=== PATIENT | female | born 1985 | race Caucasian/White ===

== ENCOUNTER 2016-11-16 15:41 | Emergency (ER) | payer OTHER ==
[~2016-11-16] VITALS: Ht 167.6 cm; Wt 111.3 kg
[2016-11-16 16:42] LABS: BASOPHIL % 0.3 % (0-2); PLATELET COUNT 242 x10^3mcL (130-400); RED CELL DISTRIBUTION WIDTH 14.3 % (11.5-14.5)
[2016-11-16 16:49] LABS: CHLORIDE SERUM 97 mmol/L (98-107); CREATININE SERUM 0.8 mg/dL (0.6-1.0); GFR1 > 60 mL/min; GLUCOSE SERUM 389 mg/dL (74-106); POTASSIUM SERUM 3.7 mmol/L (3.5-5.1); SODIUM SERUM 134 mmol/L (136-145)
[2016-11-16 17:01] LABS: ALBUMIN 3.5 g/dL (3.4-5.0); ALKALINE PHOSPHATASE 78 U/L (46-116); ALT/SGPT 30 U/L (14-59); AST/SGOT 12 U/L (15-37); BILIRUBIN TOTAL 0.24 mg/dL (0.20-1.00); TOTAL PROTEIN, SERUM 7.8 g/dL (6.4-8.2)
[2016-11-16 20:06] VITALS: BP 136/79
== END 2016-11-16 20:06 | disposition home or self-care (01) ==
LOC: ED 15:41
PROVIDERS: Emergency Medicine
DX: R07.9 Chest pain, unspecified (principal); E11.9 Type 2 diabetes mellitus without complications; I10 Essential (primary) hypertension; F43.9 Reaction to severe stress, unspecified; Z98.51 Tubal ligation status
CPT/HCPCS: 36415; 82962; 83880; J1815; Q0092

== ENCOUNTER 2017-01-26 12:10 | Emergency (ER) | payer OTHER ==
[2017-01-26 13:01] LABS: CALCIUM 8.7 mg/dL (8.5-10.1); CARBON DIOXIDE 26.1 mmol/L (21-32); CHLORIDE SERUM 99 mmol/L (98-107); CREATININE SERUM 0.9 mg/dL (0.6-1.0); GFR1 > 60 mL/min; GLUCOSE SERUM 385 mg/dL (74-106); POTASSIUM SERUM 3.7 mmol/L (3.5-5.1); SODIUM SERUM 135 mmol/L (136-145)
[2017-01-26 13:07] LABS: BASOPHIL % 0.3 % (0-2); PLATELET COUNT 232 x10^3mcL (130-400); RED CELL DISTRIBUTION WIDTH 13.6 % (11.5-14.5)
[2017-01-26 13:09] LABS: ALBUMIN 3.4 g/dL (3.4-5.0); ALKALINE PHOSPHATASE 81 U/L (46-116); ALT/SGPT 31 U/L (14-59); AST/SGOT 16 U/L (15-37); BILIRUBIN TOTAL 0.3 mg/dL (0.20-1.00); TOTAL PROTEIN, SERUM 7.5 g/dL (6.4-8.2)
[2017-01-26 13:38] LABS: microscopic required? NO
[2017-01-26] MEDS ORDERED: LANTUS SOLOS100 U/M1 SQ (13:38)
[2017-01-26 14:35] LABS: AMYLASE 32 U/L (25-115); CHOLESTEROL 233 mg/dL (<200); CHOLESTEROL/HDL RATIO 6.7; HDL CHOLESTEROL 35 mg/dL (40-60); LIPASE 130 IU/L (73-393); MAGNESIUM 1.6 mg/dL (1.8-2.4); PHOSPHOROUS 3.5 mg/dL (2.5-4.9); TRIGLYCERIDES 431 mg/dL (<150)
[2017-01-26 14:42] LABS: T3 TOTAL 1.16 ng/mL
[2017-01-26 15:02] VITALS: BP 119/89
[2017-01-26 15:03] LABS: UA SPECIFIC GRAVITY 1.015 (1.005-1.035); urine erythrocyte NEGATIVE (NEGATIVE)
[2017-01-26 15:07] LABS: AMPHETAMINE QUAL UR NONE DETECTED (NEG <=1000)
[2017-01-26 15:23] LABS: FREE T4 0.97 ng/dL (0.76-1.46); FREE THYROXINE INDEX 2.7 ug/dL (1.4-4.5); T4(THYROXINE) 8.3 ug/dL (4.7-13.3)
== END 2017-01-26 15:02 | disposition left against medical advice (07) ==
LOC: ED 12:10 → DU 13:17 → ED 13:17
PROVIDERS: Emergency Medicine; Family Medicine Sports Medicine
DX: R07.89 Other chest pain (principal); E11.65 Type 2 diabetes mellitus with hyperglycemia; I10 Essential (primary) hypertension; E78.00 Pure hypercholesterolemia, unspecified
CPT/HCPCS: 82962; 83880; 84439; 85378; J1815; J1885; J7030; Q0092

== ENCOUNTER 2018-03-06 18:51 | Emergency (ER) | payer OTHER ==
[~2018-03-06] VITALS: Ht 175.3 cm; Wt 108.4 kg
[~2018-03-06 18:51] MED LIST: LANTUS SOLOS100 U/M1 SQ
[2018-03-06 19:08] VITALS: Ht 175.3 cm; Wt 108.4 kg
[2018-03-06 21:46] VITALS: BP 132/92
== END 2018-03-06 21:46 | disposition home or self-care (01) ==
LOC: ED 18:51
DX: B34.9 Viral infection, unspecified (principal); I10 Essential (primary) hypertension; E11.9 Type 2 diabetes mellitus without complications

== ENCOUNTER 2018-06-22 16:09 | Emergency (ER) | payer OTHER ==
[~2018-06-22] VITALS: Ht 170.2 cm; Wt 109.8 kg
[2018-06-22 16:12] VITALS: Ht 170.2 cm; Wt 109.8 kg
[2018-06-22 17:03] LABS: BASOPHIL % 0.3 % (0-2); PLATELET COUNT 258 x10^3mcL (130-400); RED CELL DISTRIBUTION WIDTH 14.4 % (11.5-14.5)
[2018-06-22 17:09] LABS: CALCIUM 8.6 mg/dL (8.5-10.1); CARBON DIOXIDE 27.6 mmol/L (21-32); CHLORIDE SERUM 99 mmol/L (98-107); CREATININE SERUM 0.7 mg/dL (0.6-1.0); GFR1 > 60 mL/min; GLUCOSE SERUM 329 mg/dL (74-106); POTASSIUM SERUM 3.8 mmol/L (3.5-5.1); SODIUM SERUM 136 mmol/L (136-145)
[2018-06-22 17:13] LABS: ALBUMIN 3.7 g/dL (3.4-5.0); ALKALINE PHOSPHATASE 83 U/L (46-116); ALT/SGPT 26 U/L (14-59); AST/SGOT 19 U/L (15-37); LIPASE 130 IU/L (73-393); TOTAL PROTEIN, SERUM 7.8 g/dL (6.4-8.2)
[2018-06-22 18:59] VITALS: BP 144/79
== END 2018-06-22 18:59 | disposition home or self-care (01) ==
LOC: ED 16:09
PROVIDERS: Emergency Medicine
DX: E11.65 Type 2 diabetes mellitus with hyperglycemia (principal); R53.1 Weakness; I10 Essential (primary) hypertension
CPT/HCPCS: 82962; J1885; J2405; J7030

== ENCOUNTER 2018-11-23 11:54 | Emergency (ER) | payer OTHER ==
[~2018-11-23] VITALS: Ht 170.2 cm; Wt 112.0 kg
[2018-11-23 12:28] VITALS: Ht 170.2 cm; Wt 112.0 kg
[2018-11-23 14:59] VITALS: BP 139/96
== END 2018-11-23 14:59 | disposition home or self-care (01) ==
LOC: ED 11:54
DX: M77.12 Lateral epicondylitis, left elbow (principal); I10 Essential (primary) hypertension; E11.9 Type 2 diabetes mellitus without complications; Z98.890 Other specified postprocedural states; Z90.49 Acquired absence of other specified parts of digestive tract

== ENCOUNTER 2019-04-02 10:06 | Emergency (ER) | payer OTHER ==
[~2019-04-02] VITALS: Ht 167.6 cm; Wt 110.7 kg
[2019-04-02 10:10] VITALS: Ht 167.6 cm; Wt 110.7 kg
[2019-04-02 12:01] VITALS: BP 114/76
== END 2019-04-02 12:01 | disposition home or self-care (01) ==
LOC: ED 10:06
DX: N64.4 Mastodynia (principal); I10 Essential (primary) hypertension; E11.9 Type 2 diabetes mellitus without complications; E78.5 Hyperlipidemia, unspecified; Z90.49 Acquired absence of other specified parts of digestive tract; Z98.890 Other specified postprocedural states
CPT/HCPCS: J1885

== ENCOUNTER 2019-05-22 14:59 | Emergency (ER) | payer OTHER ==
[~2019-05-22] VITALS: Ht 170.2 cm; Wt 112.9 kg
[2019-05-22 15:04] VITALS: Ht 170.2 cm; Wt 112.9 kg
[2019-05-22 17:11] LABS: CALCIUM 8.9 mg/dL (8.5-10.1); CARBON DIOXIDE 28.7 mmol/L (21-32); CHLORIDE SERUM 99 mmol/L (98-107); CREATININE SERUM 0.7 mg/dL (0.6-1.0); GFR1 > 60 mL/min; GLUCOSE SERUM 347 mg/dL (74-106); SODIUM SERUM 137 mmol/L (136-145)
[2019-05-22 17:12] LABS: POTASSIUM SERUM 4.1 mmol/L (3.5-5.1)
[2019-05-22 18:48] VITALS: BP 124/84
== END 2019-05-22 18:48 | disposition home or self-care (01) ==
LOC: ED 14:59
PROVIDERS: Emergency Medicine
DX: G51.0 Bell's palsy (principal); E11.65 Type 2 diabetes mellitus with hyperglycemia
CPT/HCPCS: 36415

== ENCOUNTER 2019-06-07 15:05 | Emergency (ER) | payer OTHER ==
[~2019-06-07] VITALS: Ht 167.6 cm; Wt 108.9 kg
[2019-06-07 15:17] VITALS: Ht 167.6 cm; Wt 108.9 kg
[2019-06-07 17:47] VITALS: BP 136/72
== END 2019-06-07 17:45 | disposition home or self-care (01) ==
LOC: ED 15:05
DX: R05 Cough (principal); R50.9 Fever, unspecified; E11.9 Type 2 diabetes mellitus without complications; E78.5 Hyperlipidemia, unspecified; E66.9 Obesity, unspecified; I10 Essential (primary) hypertension; Z68.38 Body mass index [BMI] 38.0-38.9, adult; Z98.890 Other specified postprocedural states; Z90.49 Acquired absence of other specified parts of digestive tract
CPT/HCPCS: 87804; Q0092; U0002

== ENCOUNTER 2019-08-30 10:17 | Emergency (ER) | payer OTHER ==
[~2019-08-30] VITALS: Ht 167.6 cm; Wt 110.7 kg
[2019-08-30 10:23] VITALS: Ht 167.6 cm; Wt 110.7 kg
[2019-08-30 11:35] VITALS: BP 145/89
== END 2019-08-30 11:13 | disposition home or self-care (01) ==
LOC: ED 10:17
DX: S43.402A Unspecified sprain of left shoulder joint, initial encounter (principal); L03.116 Cellulitis of left lower limb; I10 Essential (primary) hypertension; E11.9 Type 2 diabetes mellitus without complications; Z90.49 Acquired absence of other specified parts of digestive tract; X58.XXXA Exposure to other specified factors, initial encounter; Y93.89 Activity, other specified; Y92.89 Other specified places as the place of occurrence of the external cause; Y99.8 Other external cause status
CPT/HCPCS: J1885; Q0092

== ENCOUNTER 2019-09-11 12:11 | Emergency (ER) | payer OTHER, SELFPAY ==
[~2019-09-11] VITALS: Ht 170.2 cm; Wt 110.2 kg
[2019-09-11 12:33] VITALS: Ht 170.2 cm; Wt 110.2 kg
[2019-09-11 14:06] LABS: CALCIUM 8.6 mg/dL (8.5-10.1); CHLORIDE SERUM 98 mmol/L (98-107); CREATININE SERUM 0.5 mg/dL (0.6-1.0); GFR1 > 60 mL/min; GLUCOSE SERUM 284 mg/dL (74-106); POTASSIUM SERUM 3.9 mmol/L (3.5-5.1); SODIUM SERUM 134 mmol/L (136-145)
[2019-09-11 14:21] LABS: BASOPHIL % 0.4 % (0-2); PLATELET COUNT 176 x10^3mcL (130-400); RED CELL DISTRIBUTION WIDTH 13.9 % (11.5-14.5)
[2019-09-11 15:40] VITALS: BP 115/67
== END 2019-09-11 15:48 | disposition home or self-care (01) ==
LOC: ED 12:11
PROVIDERS: Emergency Medicine
DX: R00.0 Tachycardia, unspecified (principal); R50.9 Fever, unspecified; I10 Essential (primary) hypertension; E11.9 Type 2 diabetes mellitus without complications; R06.02 Shortness of breath; R07.89 Other chest pain; Z20.828 Contact with and (suspected) exposure to other viral communicable diseases
CPT/HCPCS: J0780; J1885; J7030; Q0092; U0003-CS

== ENCOUNTER 2019-09-14 22:41 | Emergency (ER) | payer OTHER ==
[~2019-09-14] VITALS: Ht 167.6 cm; Wt 104.8 kg
[2019-09-14 22:51] VITALS: Ht 167.6 cm; Wt 104.8 kg
[2019-09-15 00:53] VITALS: BP 131/95
== END 2019-09-15 00:53 | disposition home or self-care (01) ==
LOC: ED 22:41
DX: R04.0 Epistaxis (principal); I10 Essential (primary) hypertension; E11.9 Type 2 diabetes mellitus without complications; E78.5 Hyperlipidemia, unspecified; Z90.49 Acquired absence of other specified parts of digestive tract; Z98.890 Other specified postprocedural states

== ENCOUNTER 2019-10-15 09:11 | Emergency (ER) | payer OTHER, SELFPAY ==
[~2019-10-15] VITALS: Ht 167.6 cm; Wt 105.7 kg
[2019-10-15 09:13] VITALS: Ht 167.6 cm; Wt 105.7 kg
[2019-10-15 10:04] LABS: BASOPHIL % 0.3 % (0-2); PLATELET COUNT 238 x10^3mcL (130-400)
[2019-10-15 10:10] LABS: RED CELL DISTRIBUTION WIDTH 14.9 % (11.5-14.5)
[2019-10-15 10:19] LABS: CALCIUM 9.2 mg/dL (8.5-10.1); CARBON DIOXIDE 23.4 mmol/L (21-32); CHLORIDE SERUM 99 mmol/L (98-107); CREATININE SERUM 0.6 mg/dL (0.6-1.0); GFR1 > 60 mL/min; GLUCOSE SERUM 291 mg/dL (74-106); SODIUM SERUM 136 mmol/L (136-145)
[2019-10-15 10:23] LABS: ALBUMIN 3.6 g/dL (3.4-5.0); ALKALINE PHOSPHATASE 63 U/L (46-116); ALT/SGPT 19 U/L (14-59); AST/SGOT 12 U/L (15-37); BILIRUBIN TOTAL 0.3 mg/dL (0.20-1.00); C REACTIVE PROTEIN 2.9 mg/dL (<=0.9); LACTIC DEHYDROGENASE (LDH) 145 U/L (100-190); TOTAL PROTEIN, SERUM 7.8 g/dL (6.4-8.2)
[2019-10-15 10:25] LABS: microscopic required? NO
[2019-10-15 10:33] LABS: UA SPECIFIC GRAVITY 1.015 (1.005-1.035); urine erythrocyte NEGATIVE (NEGATIVE)
[2019-10-15 13:21] VITALS: BP 124/85
== END 2019-10-15 13:21 | disposition home or self-care (01) ==
LOC: ED 09:11
PROVIDERS: Emergency Medicine
DX: R06.00 Dyspnea, unspecified (principal); I10 Essential (primary) hypertension; E11.65 Type 2 diabetes mellitus with hyperglycemia; Z90.49 Acquired absence of other specified parts of digestive tract
CPT/HCPCS: 36600; 83880; Q0092; Q9967

== ENCOUNTER 2019-10-30 09:22 | Emergency (ER) | payer OTHER, SELFPAY ==
[~2019-10-30] VITALS: Ht 170.2 cm; Wt 104.3 kg
[2019-10-30 09:24] VITALS: Ht 170.2 cm; Wt 104.3 kg
[2019-10-30 11:04] VITALS: BP 142/98
== END 2019-10-30 11:04 | disposition home or self-care (01) ==
LOC: ED 09:22
DX: J20.9 Acute bronchitis, unspecified (principal); I10 Essential (primary) hypertension; E11.9 Type 2 diabetes mellitus without complications; Z20.828 Contact with and (suspected) exposure to other viral communicable diseases; Z90.49 Acquired absence of other specified parts of digestive tract
CPT/HCPCS: Q0092; U0003-CS

== ENCOUNTER 2019-11-08 09:35 | Emergency (ER) | payer OTHER, SELFPAY ==
[~2019-11-08] VITALS: Ht 167.6 cm; Wt 105.2 kg
[2019-11-08 09:39] VITALS: Ht 167.6 cm; Wt 105.2 kg
[2019-11-08 10:51] VITALS: BP 143/103
== END 2019-11-08 10:51 | disposition home or self-care (01) ==
LOC: ED 09:35
DX: J40 Bronchitis, not specified as acute or chronic (principal); K21.9 Gastro-esophageal reflux disease without esophagitis; I10 Essential (primary) hypertension; E11.9 Type 2 diabetes mellitus without complications; Z90.49 Acquired absence of other specified parts of digestive tract; Z98.890 Other specified postprocedural states

== ENCOUNTER 2019-11-09 19:34 | Emergency (ER) | payer OTHER ==
[~2019-11-09] VITALS: Ht 167.6 cm; Wt 105.2 kg
[2019-11-09 21:20] VITALS: BP 137/90
== END 2019-11-09 21:20 | disposition home or self-care (01) ==
LOC: ED 19:34
DX: E11.65 Type 2 diabetes mellitus with hyperglycemia (principal); E78.5 Hyperlipidemia, unspecified; I10 Essential (primary) hypertension; Z98.890 Other specified postprocedural states; Z90.49 Acquired absence of other specified parts of digestive tract
CPT/HCPCS: 82962

== ENCOUNTER 2019-12-22 18:22 | Emergency (ER) | payer OTHER, SELFPAY ==
[~2019-12-22] VITALS: Ht 167.6 cm; Wt 104.3 kg
[2019-12-22 18:23] VITALS: Ht 167.6 cm; Wt 104.3 kg
[2019-12-22 19:44] VITALS: BP 145/98
== END 2019-12-22 19:44 | disposition home or self-care (01) ==
LOC: ED 18:22
DX: R07.0 Pain in throat (principal); R06.02 Shortness of breath; M79.10 Myalgia, unspecified site; I10 Essential (primary) hypertension; E11.9 Type 2 diabetes mellitus without complications; Z20.828 Contact with and (suspected) exposure to other viral communicable diseases; Z90.49 Acquired absence of other specified parts of digestive tract
CPT/HCPCS: Q0092; U0003-CS

== ENCOUNTER 2020-04-02 04:14 | Emergency (ER) | payer OTHER ==
[~2020-04-02] VITALS: Ht 167.6 cm; Wt 112.5 kg
[2020-04-02 04:27] VITALS: Ht 167.6 cm; Wt 112.5 kg
[2020-04-02 06:35] LABS: PLATELET COUNT 262 x10^3mcL (179-408)
[2020-04-02 06:40] LABS: RED CELL DISTRIBUTION WIDTH 15.1 % (12.3-17.7)
[2020-04-02 07:14] LABS: ALKALINE PHOSPHATASE 71 U/L (46-116); ALT/SGPT 21 U/L (14-59); AST/SGOT 11 U/L (15-37); BILIRUBIN TOTAL 0.13 mg/dL (0.20-1.00); CALCIUM 8.3 mg/dL (8.5-10.1); CARBON DIOXIDE 22.5 mmol/L (21-32); CHLORIDE SERUM 99 mmol/L (98-107); CREATININE SERUM 0.6 mg/dL (0.6-1.0); GFR1 > 60 mL/min; GLUCOSE SERUM 362 mg/dL (74-106); LIPASE 111 IU/L (73-393); POTASSIUM SERUM 3.8 mmol/L (3.5-5.1); SODIUM SERUM 132 mmol/L (136-145); TOTAL PROTEIN, SERUM 6.8 g/dL (6.4-8.2)
[2020-04-02 07:16] LABS: ALBUMIN 3.2 g/dL (3.4-5.0)
[2020-04-02 09:47] VITALS: BP 127/56
== END 2020-04-02 09:47 | disposition home or self-care (01) ==
LOC: ED 04:14
PROVIDERS: Emergency Medicine
DX: R10.9 Unspecified abdominal pain (principal); R11.0 Nausea; I10 Essential (primary) hypertension; E11.9 Type 2 diabetes mellitus without complications; Z90.49 Acquired absence of other specified parts of digestive tract; Z98.890 Other specified postprocedural states
CPT/HCPCS: J1885